=== PATIENT | male | born 1980 | race Caucasian/White ===

== ENCOUNTER 2022-06-16 05:10 | Inpatient (IN) | payer BC, OTHER ==
[~2022-06-16] VITALS: Ht 170.2 cm; Wt 81.6 kg
[2022-06-16 05:22] VITALS: BP 123/63
--- NOTE | 2022-06-16 05:27 | NUR ---
TO BED AMBULATORY
[2022-06-16] MEDS ORDERED: KETOROLAC 15 MG/ML VIAL IVP ONE (06:45)
[2022-06-16] MEDS ORDERED: NACL 0.9% 1,000 ML IV ONE (06:45)
[2022-06-16] MEDS ORDERED: ONDANSETRON 4 MG/2 ML VIAL IVP ONE (06:45)
--- NOTE | 2022-06-16 07:22 | NUR ---
Report and continuation of care received from REBEKAH Johnson
--- NOTE | 2022-06-16 07:39 | NUR ---
Received patient resting in position of comfort; cardiac exercise specialist in place and IVF continued. Patient states relief to pain; 0/10 at rest; 5/10 with ambulating at this time. All needs met. NAD.
[2022-06-16 07:43] LABS: ALBUMIN 4.4 g/dL (3.4-5.0); ANION GAP 12.1 (8-16); CARBON DIOXIDE 29.8 mmol/L (21-32); CREATININE 0.8 mg/dL (0.6-1.3); POTASSIUM 3.9 mmol/L (3.5-5.1); TOTAL BILIRUBIN 1.1 mg/dL (0.0-1.0)
[2022-06-16 07:50] LABS: HEMATOCRIT 41.5 % (36-52); HEMOGLOBIN 14.5 g/dL (12.0-18.0); MEAN CORPUSCULAR HEMOGLOBIN 29 pg (27-31); MEAN CORPUSCULAR HGB CONC 35 g/dL (33-37); MEAN CORPUSCULAR VOLUME 82.3 fL (80-94); PLATELET COUNT (AUTO) 234 K/uL (140-450); RED BLOOD CELL COUNT(AUTO) 5.03 MIL/uL (4.20-6.10); RED CELL DISTRIBUTION WIDTH 13.8 % (11.6-13.7); WHITE BLOOD COUNT (AUTO) 17.5 K/uL (4.8-10.8)
--- NOTE | 2022-06-16 08:07 | NUR ---
Patient to CT via WC.
--- NOTE | 2022-06-16 08:21 | NUR ---
MILI collected walked to lab and handed to CPT. Bravo
--- NOTE | 2022-06-16 08:21 | NUR ---
Pt returned from CT via WC, placed back onto monitor tech and IVF continued.
[2022-06-16 08:34] LABS: APPEARANCE,URINE CLEAR (CLEAR); BILIRUBIN,URINE NEGATIVE (NEGATIVE); BLOOD, URINE 2+ (NEGATIVE); COLOR,URINE YELLOW (YELLOW); LEUKOCYTE ESTERASE ,URINE NEGATIVE (NEGATIVE); NITRITE, URINE NEGATIVE (NEGATIVE); UGLUCOSE NEGATIVE (NEGATIVE)
[2022-06-16 08:37] LABS: BASOPHILS % (MANUAL) 0 % (0-2); EOSINOPHILS % (MANUAL) 0 % (0-4); LYMPHOCYTES % (MANUAL) 6 % (20-46); MONOCYTES % (MANUAL) 8 % (5-12)
[2022-06-16 08:38] LABS: BLASTS, MANUAL % 0 % (0-0); METAMYELOCYTES % 0 % (0-0); MYELOCYTES % 0 % (0-0); OTHER CELLS,MANUAL % 0 (0-0); PROMYELOCYTES % 0 % (0-0)
[2022-06-16 08:39] LABS: BUFFY COAT SMEAR PREP N
[2022-06-16] MEDS ORDERED: metroNIDAZOLE 500 MG/NS PREMIX 100 ML IV ONE (09:00)
[2022-06-16] MEDS ORDERED: cefTRIAXone 2,000 MG in DEXTROSE 5% 100 ML IV ONE (09:00)
[2022-06-16 09:04] LABS: WBC,URINE 0-5 /HPF (0-5)
[2022-06-16 09:05] LABS: OTHER CASTS, URINE None Seen /LPF (None Seen)
--- NOTE | 2022-06-16 10:07 | NUR ---
Richelle walked to lab and handed to CPT Roxie
--- NOTE | 2022-06-16 10:19 | NUR ---
Lab at bedside
[2022-06-16] MEDS ORDERED: cefTRIAXone 2,000 MG VIAL ONE (10:39)
[2022-06-16] MEDS ORDERED: ZOLPIDEM 5 MG TAB PO PRN (12:00)
[2022-06-16] MEDS ORDERED: guaiFENesin DM 200/20 MG-10 ML 10 ML UDC PO PRN (12:00)
[2022-06-16] MEDS ORDERED: ACETAMINOPHEN 325 MG TAB PO PRN (12:00)
[2022-06-16] MEDS ORDERED: POTASSIUM CHLORIDE 40 MEQ, LIDOCAINE MPF 1% 25 MG in NACL 0.9% 250 ML IV PRN (12:00)
[2022-06-16] MEDS ORDERED: HYDROcodone/APAP 7.5/325 MG 1 TAB PO PRN (12:00)
[2022-06-16] MEDS ORDERED: DOCUSATE SODIUM 100 MG GELCAP PO PRN (12:00)
[2022-06-16] MEDS ORDERED: ONDANSETRON 4 MG/2 ML VIAL IM/IVP PRN (12:00)
[2022-06-16] MEDS ORDERED: MORPHINE SULFATE 2 MG/ML SYR IVP PRN (12:05)
[2022-06-16] MEDS: DEXT 5% /NACL 0.9% 1,000 ML IV SCH ×3 (12:51→22:03)
[2022-06-16 12:53] LABS: PROTHROMBIN TIME 11.5 secs (10.8-13.4)
[2022-06-16] MEDS: metroNIDAZOLE 500 MG/NS PREMIX 100 ML IV SCH ×2 (13:00→20:59)
[2022-06-16 13:09] LABS: FREE T4 (FREE THYROXINE) 1.21 ng/dL (0.76-1.46); MAGNESIUM 2.1 mg/dL (1.8-2.4); PHOSPHORUS 2.3 mg/dL (2.5-4.9); THYROID STIMULATING HORMONE 1.3 uIU/mL (0.34-3.74)
--- NOTE | 2022-06-16 14:35 | NUR ---
Patient resting in position of comfort. IVF NS 0.9% continued at 60mL/hr. surveillance monitor in place. Patient denies pain. Bed locked in lowest position, side rails x 1. [place] and pillow provided per request.
--- NOTE | 2022-06-16 16:43 | NUR ---
PATIENT HAS BEEN SCREENED AND CATEGORIZED MODERATE NUTRITION RISK. PATIENT WILL BE SEEN WITHIN 3-5 DAYS OF ADMISSION. REVIEWED BY MARKO CRAWFORD RD
--- NOTE | 2022-06-16 16:45 | NUR ---
Patient resting in position of comfort. Maintenance IVF continued. baggage checker in place. Bed locked in lowest position, side rails x 1. Denies pain at this time.
--- NOTE | 2022-06-16 17:20 | NUR ---
ADMITTED FROM ER VIA WHEELCHAIR. AWAKE, ALERT, AND ORIENTED X4. SPEECH CLEAR. NO C/O PAIN. NO SOB, NOTED. SKIN WARM, DRY AND INTACT. EXPLAINED DIAGNOSIS, PLAN OF CARE, PAIN MANAGEMENT TEACHING, DIET, USE OF CALL LIGHT/BED/TV/BATHROOM. VERBALIZED UNDERSTANDING. CALL LIGHT WITHIN REACH. ADMISSION ASSESSMENT DONE.
--- NOTE | 2022-06-16 17:20 | NUR ---
Patient will be admitted to care of Dr. Osorio. Admited to Med/Surg. Will go to room 120B. Belongings list completed. Report to REBEKAH Pennington.
[2022-06-16 18:28] VITALS: BP 121/65
--- NOTE | 2022-06-16 19:29 | NUR ---
BEDSIDE REPORT GIVEN TO JORGE DHALIWAL FOR CONTINUITY OF CARE. IVF INFUSING WELL. IN STABLE CONDITION.
--- NOTE | 2022-06-16 19:30 | NUR ---
RECD. AMBULATING FROM THE BR. AWAKE, A/OX4. RESPIRATION EVEN AND UNLABORED. IV OF D5NS INFUSING A 125 ML/HR, LEFT HAND G20. DENIES DIARRHEA AND DENIES VOMITING. ON IV ANTIBIOTICS. DENIES PAIN 0/10. TOLERATING CLEAR LIQUID DIET. DENIES PAIN 0/10.
[2022-06-16 20:00] VITALS: BP 104/68
--- NOTE | 2022-06-16 20:00 | NUR ---
Patient's Plan of Care was discussed and reviewed with MADHURI PATEL
--- NOTE | 2022-06-16 21:00 | NUR ---
AWARE OF THE SURGICAL CONSULT FOR HIM, POSSIBILITY OF SEEING HIM TOMORROW.
[2022-06-16 22:25] LABS: CHOL/HDL RATIO 1.7 (1-4.5)
[2022-06-17] VITALS: BP 116/62
--- NOTE | 2022-06-17 | NUR ---
SLEEPING COMFORTABLY IN BED, RESPIRATION EVEN AND UNLABORED. CALL LIGHT IN REACH.
--- NOTE | 2022-06-17 02:00 | NUR ---
ON HIS RIGHT SIDE COMFORTABLY SLEEPING.
[2022-06-17] MEDS: DEXT 5% /NACL 0.9% 1,000 ML IV SCH ×3 (04:00→20:00)
--- NOTE | 2022-06-17 04:00 | NUR ---
NO COMPLAINT OF ABDOMINAL PAIN, 0/10.
[2022-06-17] MEDS: metroNIDAZOLE 500 MG/NS PREMIX 100 ML IV SCH ×3 (04:48→21:25)
[2022-06-17 05:34] LABS: BASOPHILS % (AUTO) 0.3 % (0.0-2.0); EOSINOPHILS % (AUTO) 0.3 % (0.0-4.0); HEMATOCRIT 37.4 % (36-52); LYMPHOCYTES # (AUTO) 1.3 K/uL (2.0-11.5); LYMPHOCYTES % (AUTO) 7.7 % (20.5-51.1); MEAN CORPUSCULAR HEMOGLOBIN 29 pg (27-31); MEAN CORPUSCULAR HGB CONC 35 g/dL (33-37); MEAN CORPUSCULAR VOLUME 81.9 fL (80-94); MONOCYTES # (AUTO) 1.2 K/uL (0.8-1.0); MONOCYTES % (AUTO) 7.6 % (1.7-9.3); NEUTROPHILS # (AUTO) 13.6 K/uL (1.8-7.7); NEUTROPHILS % (AUTO) 84.1 % (42.2-75.2); PLATELET COUNT (AUTO) 224 K/uL (140-450); RED BLOOD CELL COUNT(AUTO) 4.56 MIL/uL (4.20-6.10); RED CELL DISTRIBUTION WIDTH 13.9 % (11.6-13.7); WHITE BLOOD COUNT (AUTO) 16.2 K/uL (4.8-10.8)
--- NOTE | 2022-06-17 06:00 | NUR ---
TOLERATED ANTIBIOTICS ADMINISTERED BY REBEKAH DE LA PAZ. NO COMPLAINT OF PAIN DURING THE NIGHT.
[2022-06-17 06:13] LABS: ANION GAP 9.6 (8-16); CARBON DIOXIDE 29.8 mmol/L (21-32); CREATININE 0.7 mg/dL (0.6-1.3); POTASSIUM 3.4 mmol/L (3.5-5.1)
--- NOTE | 2022-06-17 07:35 | NUR ---
CONDITION REMAIN STABLE. ENDORSED TO AM SHIFT NURE FOR CONTINUITY OF CARE.
[2022-06-17 08:00] VITALS: BP 128/78
[2022-06-17 15:06] LABS: T4 (THYROXINE) 7.5 ug/dL (4.5-12.0)
[2022-06-17 16:00] VITALS: BP 123/73
--- NOTE | 2022-06-17 21:25 | NUR ---
ADMINISTERED SCHEDULED DUE MEDICATION.
[2022-06-18 01:06] VITALS: BP 130/78
--- NOTE | 2022-06-18 03:29 | NUR ---
PATIENT IS AWAKE AT THIS TIME. NO SOB. ABLE TO COMMUNICATE WITH HIS NEEDS. IVF D5 NS INFUSING AT 125 ML/HR ON THE LEFT HAND. ABLE TO AMBULATE. SAFETY MEASURES IN PLACE. CALL LIGHT WITHIN REACH.
[2022-06-18] MEDS: DEXT 5% /NACL 0.9% 1,000 ML IV SCH (04:34)
[2022-06-18] MEDS: metroNIDAZOLE 500 MG/NS PREMIX 100 ML IV SCH (04:41)
[2022-06-18 06:05] LABS: BASOPHILS # (AUTO) 0.1 K/uL (0.00-0.22); BASOPHILS % (AUTO) 0.5 % (0.0-2.0); EOSINOPHILS # (AUTO) 0.1 K/uL (0-0.4); EOSINOPHILS % (AUTO) 0.9 % (0.0-4.0); HEMATOCRIT 33.9 % (36-52); HEMOGLOBIN 11.9 g/dL (12.0-18.0); LYMPHOCYTES # (AUTO) 0.8 K/uL (2.0-11.5); LYMPHOCYTES % (AUTO) 7.5 % (20.5-51.1); MEAN CORPUSCULAR HEMOGLOBIN 29 pg (27-31); MEAN CORPUSCULAR HGB CONC 35 g/dL (33-37); MEAN CORPUSCULAR VOLUME 81.5 fL (80-94); MONOCYTES # (AUTO) 1.2 K/uL (0.8-1.0); NEUTROPHILS # (AUTO) 8.6 K/uL (1.8-7.7); NEUTROPHILS % (AUTO) 80.1 % (42.2-75.2); PLATELET COUNT (AUTO) 192 K/uL (140-450); RED BLOOD CELL COUNT(AUTO) 4.16 MIL/uL (4.20-6.10); RED CELL DISTRIBUTION WIDTH 13.4 % (11.6-13.7); WHITE BLOOD COUNT (AUTO) 10.8 K/uL (4.8-10.8)
[2022-06-18 06:59] LABS: CARBON DIOXIDE 26.2 mmol/L (21-32); CREATININE 0.7 mg/dL (0.6-1.3); POTASSIUM 3.2 mmol/L (3.5-5.1)
--- NOTE | 2022-06-18 07:16 | NUR ---
GAVE REPORT TO DAY SHIFT NURSE ADZE FOR CONTINUITY OF CARE.
[2022-06-18] MEDS ORDERED: AMOX-999 PO (08:58)
[2022-06-18 13:10] VITALS: BP 130/78
--- NOTE | 2022-06-18 14:40 | NUR ---
PATIENT DISCHARGED HOME. STABLE UPON DISCHARGE
== END 2022-06-18 15:13 | disposition home or self-care (01) | DRG 872 ==
LOC: MED 05:10 → MTU 11:02
PROVIDERS: ADMIT Family Medicine; ATTEND Family Medicine
DX: A41.9 Sepsis, unspecified organism (principal); K57.80 Diverticulitis of intestine, part unspecified, with perforation and abscess without bleeding; R19.7 Diarrhea, unspecified; Z20.822 Contact with and (suspected) exposure to COVID-19; Z72.0 Tobacco use
CPT/HCPCS: 36415; 71045; 80048; 80053; 81001; 82150; 83036; 83690; 83735; 83880; 84100; 84436; 84439; 84443; 84479; 85025; 85610; 85730; 87040; 87081; 96365; 96367; 96375; 99285; J0696; J1885; J2001; J2405; J3480; J3490; J7030; J7060; Q9967